=== PATIENT | female | born 1940 | race Caucasian/White ===

== ENCOUNTER → 2017-08-13 | Emergency (ER) | payer OTHER ==
[~2017-08-13] VITALS: Ht 236.2 cm; Wt 44.0 kg
[~2017-08-13] MED LIST: ADVAIR 100-501 EACH; ADVAIR 100-501 EACH IH; ALBUTEROL1.25 MG/3; ALBUTEROL2.5 MG/3 M IH; ASA81 MG PO; ATENOLOL25 MG; GUAIFENESIN600 MG PO; LEVAQUIN-D5W5 MG/M2 IV; LEVAQUIN750 MG PO; LEVOFLOXACIN500 MG; MEDROLPACK PO; MILLIPRED5 MG; PREDNISONE10 MG PO; PROTONIX40 MG PO; SPIRIVIA; SUCRALFATE1 GM/10 ML PO; SYMBICORT 16010.2 GM; SYNTHROID100 MCG PO; SYNTHROID50 MCG; Synthroid 100MCG TABLET PO; ZANTAC150 MG PO; ZOCOR5 MG; [UNRECOGNIZED DRUG - OTHER]
== END | disposition home or self-care (01) ==
LOC: ER 09:12
DX: R06.02 Shortness of breath (principal); J44.9 Chronic obstructive pulmonary disease, unspecified; J11.1 Influenza due to unidentified influenza virus with other respiratory manifestations

== ENCOUNTER 2017-09-24 09:47 | Emergency (ER) | payer OTHER ==
[~2017-09-24] VITALS: Ht 142.2 cm; Wt 44.0 kg
== END 2017-09-24 16:32 | disposition home or self-care (01) ==
LOC: ER 09:47
DX: R06.02 Shortness of breath (principal)

== ENCOUNTER 2017-11-12 09:01 | Emergency (ER) | payer OTHER ==
[~2017-11-12] VITALS: Ht 152.4 cm; Wt 44.0 kg
[2017-11-12] MEDS ORDERED: LEVAQUIN500 MG PO (13:52)
== END 2017-11-12 15:53 | disposition home or self-care (01) ==
LOC: ER 09:01
DX: N39.0 Urinary tract infection, site not specified (principal)

== ENCOUNTER 2017-12-31 09:30 | Emergency (ER) | payer OTHER ==
[~2017-12-31] VITALS: Ht 147.3 cm; Wt 44.0 kg
[~2017-12-31 09:30] MED LIST changes: +LEVAQUIN500 MG PO
[2017-12-31] MEDS ORDERED: ZITHROMAX TRI-500 MG PO (13:30)
[2017-12-31] MEDS ORDERED: MEDROLPACK PO (13:30)
== END 2017-12-31 14:01 | disposition home or self-care (01) ==
LOC: ER 09:30
DX: J06.9 Acute upper respiratory infection, unspecified (principal); R06.02 Shortness of breath; J11.1 Influenza due to unidentified influenza virus with other respiratory manifestations

== ENCOUNTER 2018-01-06 13:39 | Emergency (ER) | payer OTHER ==
[~2018-01-06] VITALS: Ht 144.8 cm; Wt 45.4 kg
[~2018-01-06 13:39] MED LIST changes: +ZITHROMAX TRI-500 MG PO
[2018-01-06] MEDS ORDERED: TUSSIN DM SYRU118 ML PO (21:27)
[2018-01-06] MEDS ORDERED: BUDESONIDE0.5 MG/2 M IH (21:27)
[2018-01-06] MEDS ORDERED: XOPENEX CO1.25 MG/0. IH (21:27)
[2018-01-06] MEDS ORDERED: LEVAQUIN750 MG PO (21:27)
== END 2018-01-06 22:14 | disposition home or self-care (01) ==
LOC: ER 13:39
DX: J44.9 Chronic obstructive pulmonary disease, unspecified (principal); J06.9 Acute upper respiratory infection, unspecified; B34.9 Viral infection, unspecified; J11.1 Influenza due to unidentified influenza virus with other respiratory manifestations

== ENCOUNTER 2018-03-03 10:38 | Emergency (ER) | payer OTHER ==
[~2018-03-03] VITALS: Ht 152.4 cm; Wt 44.0 kg
[~2018-03-03 10:38] MED LIST changes: +BUDESONIDE0.5 MG/2 M IH; +TUSSIN DM SYRU118 ML PO; +XOPENEX CO1.25 MG/0. IH
== END 2018-03-03 13:36 | disposition home or self-care (01) ==
LOC: ER 10:38
DX: J44.9 Chronic obstructive pulmonary disease, unspecified (principal)

== ENCOUNTER 2018-03-29 10:16 | Emergency (ER) | payer OTHER ==
[~2018-03-29] VITALS: Ht 121.9 cm; Wt 44.0 kg
== END 2018-03-29 15:57 | disposition home or self-care (01) ==
LOC: ER 10:16
DX: J44.9 Chronic obstructive pulmonary disease, unspecified (principal)

== ENCOUNTER 2018-04-20 10:13 | Emergency (ER) | payer OTHER ==
[~2018-04-20] VITALS: Ht 149.9 cm; Wt 44.0 kg
== END 2018-04-20 14:28 | disposition home or self-care (01) ==
LOC: ER 10:13
DX: J44.9 Chronic obstructive pulmonary disease, unspecified (principal)

== ENCOUNTER 2018-05-13 11:33 | Emergency (ER) | payer OTHER ==
[~2018-05-13] VITALS: Ht 144.8 cm; Wt 44.0 kg
== END 2018-05-13 15:36 | disposition home or self-care (01) ==
LOC: ER 11:33
DX: J44.9 Chronic obstructive pulmonary disease, unspecified (principal)

== ENCOUNTER 2018-06-26 10:04 | Emergency (ER) | payer OTHER ==
[~2018-06-26] VITALS: Ht 129.5 cm; Wt 43.5 kg
[2018-06-26] MEDS ORDERED: ORAPRED ODT10 MG PO (10:57)
== END 2018-06-26 16:00 | disposition home or self-care (01) ==
LOC: ER 10:04
DX: J44.9 Chronic obstructive pulmonary disease, unspecified (principal); R06.02 Shortness of breath

== ENCOUNTER 2018-07-15 14:04 | Emergency (ER) | payer OTHER ==
[~2018-07-15] VITALS: Ht 129.5 cm; Wt 44.0 kg
[~2018-07-15 14:04] MED LIST changes: +ORAPRED ODT10 MG PO
[2018-07-15] MEDS ORDERED: ALBUTEROL0.63 MG/3 IH (14:41)
== END 2018-07-15 17:02 | disposition home or self-care (01) ==
LOC: ER 14:04
DX: J44.9 Chronic obstructive pulmonary disease, unspecified (principal)

== ENCOUNTER 2018-08-11 09:55 | Emergency (ER) | payer OTHER ==
[~2018-08-11] VITALS: Ht 149.9 cm; Wt 40.4 kg
[~2018-08-11 09:55] MED LIST changes: +ALBUTEROL0.63 MG/3 IH
[2018-08-11] MEDS ORDERED: SYNTHROID100 MCG (10:02)
== END 2018-08-11 14:46 | disposition home or self-care (01) ==
LOC: ER 09:55
DX: J44.9 Chronic obstructive pulmonary disease, unspecified (principal)

== ENCOUNTER 2018-08-28 09:38 | Emergency (ER) | payer OTHER ==
[~2018-08-28] VITALS: Ht 149.9 cm; Wt 39.5 kg
[~2018-08-28 09:38] MED LIST changes: +SYNTHROID100 MCG
== END 2018-08-28 14:19 | disposition home or self-care (01) ==
LOC: ER 09:38
DX: R06.02 Shortness of breath (principal)

== ENCOUNTER 2018-10-06 11:18 | Emergency (ER) | payer OTHER ==
[~2018-10-06] VITALS: Ht 142.2 cm; Wt 44.0 kg
== END 2018-10-06 15:30 | disposition home or self-care (01) ==
LOC: ER 11:18
DX: J45.901 Unspecified asthma with (acute) exacerbation (principal)

== ENCOUNTER 2019-01-06 14:38 | Emergency (ER) | payer OTHER ==
[~2019-01-06] VITALS: Ht 127 cm; Wt 43.1 kg
[2019-01-06] MEDS ORDERED: INDAPAMIDE1.25 MG PO (14:46)
== END 2019-01-06 19:30 | disposition home or self-care (01) ==
LOC: ER 14:38
DX: J44.9 Chronic obstructive pulmonary disease, unspecified (principal)

== ENCOUNTER 2019-01-21 09:37 | Emergency (ER) | payer OTHER ==
[~2019-01-21] VITALS: Ht 147.3 cm; Wt 44.0 kg
[~2019-01-21 09:37] MED LIST changes: +INDAPAMIDE1.25 MG PO
== END 2019-01-21 13:54 | disposition home or self-care (01) ==
LOC: ER 09:37
DX: J44.9 Chronic obstructive pulmonary disease, unspecified (principal)

== ENCOUNTER 2019-02-05 09:24 | Emergency (ER) | payer OTHER ==
[~2019-02-05] VITALS: Ht 129.5 cm; Wt 43.1 kg
== END 2019-02-05 12:26 | disposition home or self-care (01) ==
LOC: ER 09:24
DX: J44.0 Chronic obstructive pulmonary disease with (acute) lower respiratory infection (principal)

== ENCOUNTER 2019-02-26 10:43 | Emergency (ER) | payer OTHER ==
[~2019-02-26] VITALS: Ht 142.2 cm; Wt 43.5 kg
== END 2019-02-26 14:55 | disposition home or self-care (01) ==
LOC: ER 10:43
DX: J44.9 Chronic obstructive pulmonary disease, unspecified (principal); J84.10 Pulmonary fibrosis, unspecified; I10 Essential (primary) hypertension

== ENCOUNTER 2019-03-09 13:33 | Emergency (ER) | payer OTHER ==
[~2019-03-09] VITALS: Ht 147.3 cm; Wt 43.1 kg
[2019-03-10] MEDS ORDERED: PREDNISONE10 MG PO (16:56)
== END 2019-03-09 18:22 | disposition home or self-care (01) ==
LOC: ER 13:33
DX: J44.1 Chronic obstructive pulmonary disease with (acute) exacerbation (principal); Z99.81 Dependence on supplemental oxygen

== ENCOUNTER 2019-03-10 16:38 | Emergency (ER) | payer OTHER ==
[~2019-03-10] VITALS: Ht 147.3 cm; Wt 43.5 kg
[2019-03-10] MEDS ORDERED: PREDNISONE10 MG PO (16:56)
== END 2019-03-10 21:44 | disposition home or self-care (01) ==
LOC: ER 16:38
DX: N30.81 Other cystitis with hematuria (principal)

== ENCOUNTER 2019-03-19 14:59 | Emergency (ER) | payer OTHER ==
[~2019-03-19] VITALS: Ht 124.5 cm; Wt 43.5 kg
== END 2019-03-19 20:26 | disposition home or self-care (01) ==
LOC: ER 14:59
DX: R10.2 Pelvic and perineal pain (principal); N30.80 Other cystitis without hematuria

== ENCOUNTER 2019-04-07 14:29 | Emergency (ER) | payer OTHER ==
[~2019-04-07] VITALS: Ht 139.7 cm; Wt 38.1 kg
== END 2019-04-07 20:57 | disposition home or self-care (01) ==
LOC: ER 14:29
DX: J44.9 Chronic obstructive pulmonary disease, unspecified (principal); Z87.891 Personal history of nicotine dependence

== ENCOUNTER 2019-04-10 12:08 | Emergency (ER) | payer OTHER ==
[~2019-04-10] VITALS: Ht 149.9 cm; Wt 38.1 kg
== END 2019-04-10 17:09 | disposition home or self-care (01) ==
LOC: ER 12:08
DX: N39.0 Urinary tract infection, site not specified (principal)

== ENCOUNTER 2019-09-15 08:16 | Emergency (ER) | payer OTHER ==
[~2019-09-15] VITALS: Ht 160 cm; Wt 43.5 kg
[2019-09-15] MEDS ORDERED: ZITHROMAX500 MG PO (11:15)
== END 2019-09-15 11:37 | disposition home or self-care (01) ==
LOC: ER 08:16
DX: R06.02 Shortness of breath (principal); R05 Cough; Z03.818 Encounter for observation for suspected exposure to other biological agents ruled out

== ENCOUNTER 2019-10-05 15:12 | Emergency (ER) | payer OTHER ==
[~2019-10-05] VITALS: Ht 127 cm; Wt 43.5 kg
[~2019-10-05 15:12] MED LIST changes: +ZITHROMAX500 MG PO
[2019-10-05] MEDS ORDERED: SYMBICORT 16010.2 GM IH (15:29)
== END 2019-10-05 21:39 | disposition home or self-care (01) ==
LOC: ER 15:12
DX: J44.1 Chronic obstructive pulmonary disease with (acute) exacerbation (principal); Z99.81 Dependence on supplemental oxygen

== ENCOUNTER 2019-10-11 09:03 | Emergency (ER) | payer OTHER ==
[~2019-10-11] VITALS: Ht 162.6 cm; Wt 43.1 kg
[~2019-10-11 09:03] MED LIST changes: +SYMBICORT 16010.2 GM IH
== END 2019-10-11 14:01 | disposition home or self-care (01) ==
LOC: ER 09:03
DX: K62.89 Other specified diseases of anus and rectum (principal); R10.2 Pelvic and perineal pain; M54.89 Other dorsalgia

== ENCOUNTER 2019-10-17 05:13 | Inpatient (IN) | payer OTHER ==
[~2019-10-17] VITALS: Ht 149.9 cm; Wt 39.0 kg
--- NOTE | 2019-10-17 05:19 | NUR ---
SE RECIBE PTE ALERTA Y ORIENTADA POR SHARI EN AMBULANCIA. PTE REFIERE PRESENTAR DOLOR ABDOMINAL DESDE HACE 4 SALMON. PTE ES PRESENTADA A DR. HERBERT, POR PERSONAL PARAMEDICO Y COLOCADA EN AREA DE OBSERVACION CON BARANDAS ELEVADAS.
--- NOTE | 2019-10-17 06:03 | NUR ---
PTE EVALUADA POR EL DR PIEDAD FOLEY [place]. MS M GAINES ORIENTA SOBRE EL MISMO, LO CUAL REFIERE ENTENDER, REALIZA PRUEBAS DE LABORATORIOS Y ADMINISTRA MEDICAMENTOS LULU ORDEN MEDICA Y SIGUIENDO MEDIDAS ASEPTICAS. CT PO NOTIFICADO A PERSONAL DE TURNO, PTE ORIENTADA SOBRE LA INGESTA DE CONTRASTES.
--- NOTE | 2019-10-17 07:03 | NUR ---
SE RECIBE PTE ALERTA Y ORIENTADA X3 EN [place] CON BARANDAS ELEVADAS. PTE REFIERE LEVE DOLOR ABDOMINAL. SE OBERVA CON H/L EL CUAL S EENCUENTRA PATENTE Y ZAHIRA DE EDEMA. PTE CON 0.9NSS BAJANDO A 125ML/HR. PTE CON MUESTRA DE UA PENDIENTE A ENTREGAR, PTE CON ESTUDIO DE CT PO PENDIENTE A LAS 8:50AM. PTE DEPENDIENTE DE OXIGENO, SE OBSERVA CON CN A 2LTS COLOCADA. PTE SE CONTINUA MONITORIANDO POR CAMBIOS.
[2019-10-23] MEDS ORDERED: DOLOGEN 325-11 EACH (14:53)
[2019-10-23] MEDS ORDERED: [UNRECOGNIZED DRUG - OTHER] (14:53)
[2019-10-23] MEDS ORDERED: LASIX20 MG (14:54)
[2019-10-23] MEDS ORDERED: INDAPAMIDE1.25 MG PO (14:54)
== END 2019-11-24 17:05 | disposition expired | DRG 393 ==
LOC: ER 05:13 → MEDI 14:30 → SURH 14:30 → MEDI 15:37 → MEDJ 10-22 13:59 → SURH 11-06 17:05 → ICU 11-22 23:57
PROVIDERS: ADMIT Internal Medicine; ATTEND Internal Medicine
PROC: BW21Y0Z Computerized Tomography (CT Scan) of Abdomen and Pelvis using Other Contrast, Unenhanced and Enhanced (ICD-10-PCS; 2019-10-17)
PROC: 3E0F7GC Introduction of Other Therapeutic Substance into Respiratory Tract, Via Natural or Artificial Opening (ICD-10-PCS; 2019-10-17)
PROC: 3E0436Z Introduction of Nutritional Substance into Central Vein, Percutaneous Approach (ICD-10-PCS; 2019-10-18)
PROC: 02HV33Z Insertion of Infusion Device into Superior Vena Cava, Percutaneous Approach (ICD-10-PCS; 2019-10-18)
PROC: 8E0ZXY6 Isolation (ICD-10-PCS; 2019-10-22)
PROC: 4A12X4Z Monitoring of Cardiac Electrical Activity, External Approach (ICD-10-PCS; 2019-10-22)
PROC: 0T9B70Z Drainage of Bladder with Drainage Device, Via Natural or Artificial Opening (ICD-10-PCS; 2019-11-01)
PROC: 0W9F30Z Drainage of Abdominal Wall with Drainage Device, Percutaneous Approach (ICD-10-PCS; principal; 2019-11-04)
PROC: B54MZZZ Ultrasonography of Right Upper Extremity Veins (ICD-10-PCS; 2019-11-07)
PROC: BW4GZZZ Ultrasonography of Pelvic Region (ICD-10-PCS; 2019-11-10)
PROC: B54PZZZ Ultrasonography of Bilateral Upper Extremity Veins (ICD-10-PCS; 2019-11-14)
PROC: 4A033R1 Measurement of Arterial Saturation, Peripheral, Percutaneous Approach (ICD-10-PCS; 2019-11-21)
PROC: 5A09457 Assistance with Respiratory Ventilation, 24-96 Consecutive Hours, Continuous Positive Airway Pressure (ICD-10-PCS; 2019-11-21)
PROC: 30243N1 Transfusion of Nonautologous Red Blood Cells into Central Vein, Percutaneous Approach (ICD-10-PCS; 2019-11-24)
DX: K63.1 Perforation of intestine (nontraumatic) (principal); K65.1 Peritoneal abscess; J96.01 Acute respiratory failure with hypoxia; E87.2 Acidosis; T83.518A Infection and inflammatory reaction due to other urinary catheter, initial encounter; J98.11 Atelectasis; J90 Pleural effusion, not elsewhere classified; N32.1 Vesicointestinal fistula; J44.1 Chronic obstructive pulmonary disease with (acute) exacerbation; K57.30 Diverticulosis of large intestine without perforation or abscess without bleeding; R10.32 Left lower quadrant pain; E03.8 Other specified hypothyroidism; R53.83 Other fatigue; E87.6 Hypokalemia; R53.81 Other malaise; D64.9 Anemia, unspecified; B96.5 Pseudomonas (aeruginosa) (mallei) (pseudomallei) as the cause of diseases classified elsewhere; B96.89 Other specified bacterial agents as the cause of diseases classified elsewhere; I87.2 Venous insufficiency (chronic) (peripheral); B95.2 Enterococcus as the cause of diseases classified elsewhere; Z66 Do not resuscitate